=== PATIENT | female | born 1985 | race Caucasian/White ===

== ENCOUNTER 2024-08-10 00:34 | Emergency (ER) | payer MEDICAID, OTHER ==
[~2024-08-10] VITALS: Ht 165.1 cm; Wt 100.0 kg
[2024-08-10 00:36] VITALS: TEMP 97.4
[2024-08-10] MEDS: ONDANSETRON 4MG 2ML VIAL IV ONE (02:15)
[2024-08-10] MEDS: MORPHINE 4 MG/ML 1ML VIAL IV PRN (03:02)
[2024-08-10] MEDS: BOOSTRIX VACCINE (TETANUS/DIPHTH/ACEL. PERTUSSIS) 0.5ML SYR IM ONE (03:03)
[2024-08-10] MEDS: ACETAMINOPHEN *IV* 1,000 MG in IV 1 EA IV ONE (03:20)
[2024-08-10 05:00] VITALS: BP 172/87; O2SAT 100
== END 2024-08-10 05:45 | disposition home or self-care (01) ==
LOC: M ED 00:34
DX: S80.02XA Contusion of left knee, initial encounter (principal); S00.83XA Contusion of other part of head, initial encounter; W19.XXXA Unspecified fall, initial encounter; Y92.410 Unspecified street and highway as the place of occurrence of the external cause; Y93.9 Activity, unspecified; Y99.9 Unspecified external cause status; I10 Essential (primary) hypertension; F17.200 Nicotine dependence, unspecified, uncomplicated; Z88.8 Allergy status to other drugs, medicaments and biological substances
CPT/HCPCS: 70450; 70486; 72125; 73552; 73564; 73590; 82077; 90471; 90715; 96365; 99284; J0131